=== PATIENT | female | born 2000 | race Hispanic/Latino ===

== ENCOUNTER 2022-03-29 21:00 | Emergency (ER) | payer OTHER ==
[2022-03-29] MEDS ORDERED: Lidocaine 1% (PF) 30 ML VIAL ONE (21:40)
[2022-03-29] MEDS ORDERED: Bacitracin 1 PK ONE (22:08)
[2022-03-29] MEDS ORDERED: Boostrix 0.5 ML (Tdap) VIAL ONE (22:09)
== END 2022-03-29 22:34 | disposition home or self-care (01) ==
LOC: CSHERS 21:00
DX: S61.412A Laceration without foreign body of left hand, initial encounter (principal); X58.XXXA Exposure to other specified factors, initial encounter
CPT/HCPCS: 12042; 90471; 90715; J2001